=== PATIENT | female | born 1950 | race Caucasian/White ===

== ENCOUNTER 2020-02-17 10:02 | Inpatient (IN) ==
[2020-02-17 10:44] LABS: Apearance,Urine CLOUDY (Clear); Bacteria,Urine Many /HPF (Few); Bilirubin,Urine Negative (Negative); Blood, Urine Moderate mg/dL (Negative); Glucose,Urine (UA) Negative (Negative); Ketones,Urine Negative (Negative); Nitrite,Urine Negative (Negative); Protein,Urine >=500 MG/DL; RBC,Urine 60 /HPF (0-4); Urine Color Amber (Yellow); Urine Specific Gravity 1.014 (1.001-1.035); Urine Urobilinogen < 2.0 EU/DL (0.2-1.0); WBC,Urine 590 /HPF (0-6)
[2020-02-17 10:49] LABS: Basophils % 0.1 % (0.0-0.8); Hematocrit 28.2 VOL% (35.7-47.0); Hemoglobin 9.1 GM/DL (12.0-16.0); Immature Granulocytes % 0.5 %; Immature Granulocytes Absolute 0.07 #; Lymphocytes # 0.6 10*3/uL (1.4-4.0); Mean Corpuscular HGB Conc 32.3 GM/DL (32-36); Mean Corpuscular Volume 97.6 FL (87-102); Mean Platelet Volume 10.3 FL (9.6-12.0); Monocytes % 6.6 % (1.7-12.7); Neutrophils % 88.8 % (38.7-73.9); Platelet Count 260 T/CUMM (130-400); Red Blood Count 2.89 MC/CUMM (3.8-5.5); White Blood Count 13.7 T/CUMM (4-12)
[2020-02-17 11:00] LABS: PT Patient Result 10.3 SECS (9.8-11.9); Partial Thromboplastin Time 27.1 SECS (23.9-33.8)
[2020-02-17 11:14] LABS: Anisocytosis 1+; Band Neutrophils 7 % (0-10); Lymphocytes 7 % (20-55); Platelet Estimate Normal; Segmented Neutrophils 82 % (50-85); Total Cells Counted 100
[2020-02-17 11:15] LABS: Macrocytosis Slight
[2020-02-17 11:24] LABS: Alanine Aminotransferase 23 U/L (13-56); Albumin 2.5 G/DL (3.4-5.0); Alkaline Phosphatase 69 U/L (45-117); Aspartate Amino Transferase 23 U/L (0-37); Blood Urea Nitrogen 55 MG/DL (7-18); Calcium 9.5 MG/DL (8.5-10.1); Estimated Glom Filtration Rate 8 ML/MIN; Glucose 96 MG/DL (74-106); Osmolality,Calculated 295.3 MOS/KG (273-304); Total Protein 5.7 G/DL (6.4-8.3)
[2020-02-17] MEDS ORDERED: ASPIRIN CHEW 81 MG TABLET PO STA (11:30)
[2020-02-17] MEDS ORDERED: DEXTROSE 50% 25 GM/50 ML VIAL IV PRN ×2 (12:50→14:30)
[2020-02-17] MEDS ORDERED: GLUCAGON 1 MG VIAL IM PRN ×2 (12:50→14:30)
[2020-02-17] MEDS ORDERED: ONDANSETRON 4 MG/2 ML VIAL IV PRN (14:30)
[2020-02-17] MEDS ORDERED: ACETAMINOPHEN 325 MG TABLET PO PRN (14:30)
[2020-02-17] MEDS: methylPREDNISolone SOD SUC 40 MG/1 ML VIAL IV SCH (15:12)
[2020-02-17] MEDS: cefTRIAXone 1,000 MG in SYRINGE 1 EACH IV SCH (15:14)
[2020-02-17] MEDS: SODIUM CHLORIDE 0.9% 1,000 ML IV SCH (15:18)
[2020-02-17] MEDS: INSULIN REGULAR 100 UNIT/ML SUBCUT SCH ×2 (17:10→20:58)
[2020-02-17] MEDS: DIPYRIDAMOLE/ASPIRIN 200-25 MG CAPSULE PO SCH (20:57)
[2020-02-17] MEDS: hydrALAZINE 20 MG/1 ML VIAL IV PRN (20:58)
[2020-02-18] MEDS: methylPREDNISolone SOD SUC 40 MG/1 ML VIAL IV SCH ×2 (02:03→14:24)
[2020-02-18 05:22] LABS: Basophils % 0.1 % (0.0-0.8); Hematocrit 28.1 VOL% (35.7-47.0); Hemoglobin 9.1 GM/DL (12.0-16.0); Immature Granulocytes % 1.1 %; Immature Granulocytes Absolute 0.15 #; Lymphocytes # 0.4 10*3/uL (1.4-4.0); Lymphocytes % 2.8 % (21.3-54.2); Mean Corpuscular HGB Conc 32.4 GM/DL (32-36); Mean Corpuscular Volume 98.6 FL (87-102); Mean Platelet Volume 10.6 FL (9.6-12.0); Monocytes % 2.8 % (1.7-12.7); Neutrophils % 93.2 % (38.7-73.9); Platelet Count 253 T/CUMM (130-400); Red Blood Count 2.85 MC/CUMM (3.8-5.5); Red Cell Distribution Width 14.9 % (9.3-17.3); White Blood Count 13.9 T/CUMM (4-12)
[2020-02-18 05:47] LABS: Calcium 9.2 MG/DL (8.5-10.1); Osmolality,Calculated 296.4 MOS/KG (273-304)
[2020-02-18 06:29] LABS: Lymphocytes 8 % (20-55); Platelet Estimate Adequate; Polychromasia Slight; Segmented Neutrophils 87 % (50-85); Total Cells Counted 100
[2020-02-18] MEDS: INSULIN REGULAR 100 UNIT/ML SUBCUT SCH ×4 (08:07→20:55)
[2020-02-18] MEDS: METOPROLOL TARTRATE 25 MG TABLET PO SCH (08:07)
[2020-02-18] MEDS: ASPIRIN EC 81 MG TABLET PO SCH (08:07)
[2020-02-18] MEDS: DIPYRIDAMOLE/ASPIRIN 200-25 MG CAPSULE PO SCH ×2 (08:07→20:55)
[2020-02-18] MEDS ORDERED: amLODIPine 5 MG TABLET PO SCH (09:00)
[2020-02-18] MEDS ORDERED: amLODIPine 10 MG TABLET PO SCH (14:23)
[2020-02-18] MEDS: cefTRIAXone 1,000 MG in SYRINGE 1 EACH IV SCH (14:29)
[2020-02-18] MEDS: SODIUM CHLORIDE 0.9% 1,000 ML IV SCH (16:17)
[2020-02-19] MEDS: methylPREDNISolone SOD SUC 40 MG/1 ML VIAL IV SCH (02:04)
[2020-02-19] MEDS: hydrALAZINE 20 MG/1 ML VIAL IV PRN (07:59)
[2020-02-19] MEDS ORDERED: ROSUVASTATIN 10 MG TABLET PO SCH (09:00)
[2020-02-19] MEDS: INSULIN REGULAR 100 UNIT/ML SUBCUT SCH ×2 (09:48→11:59)
[2020-02-19] MEDS: ASPIRIN EC 81 MG TABLET PO SCH (09:50)
[2020-02-19] MEDS: DIPYRIDAMOLE/ASPIRIN 200-25 MG CAPSULE PO SCH (09:50)
[2020-02-19] MEDS: METOPROLOL TARTRATE 25 MG TABLET PO SCH (09:51)
[2020-02-19 12:39] VITALS: BP 168/70
[2020-02-19] MEDS ORDERED: PNEUMOCOCCAL VACCINE (23 VALENT) 0.5 ML VIAL IM ONE (14:18)
[2020-02-19] MEDS ORDERED: INFLUENZA VIRUS VACCINE 0.5 ML SYRINGE IM ONE (14:18)
[2020-02-19] MEDS: SODIUM CHLORIDE 0.9% 1,000 ML IV SCH (14:38)
== END 2020-02-19 15:46 | disposition home health service (06) | DRG 947 ==
LOC: EDUNIT# → EDBD → N.TELEN 10:02 → N.ED 10:02 → OBSVTOIN 11:50 → N.TELEN 14:10
PROVIDERS: ADMIT Family Medicine; ATTEND Family Medicine

== ENCOUNTER 2020-03-06 06:00 | Inpatient (IN) ==
[2020-03-06] MEDS ORDERED: FUROSEMIDE 40 MG/4 ML VIAL IV STA (06:12)
[2020-03-06 06:28] LABS: Basophils % 0.5 % (0.0-0.8); Eosinophils # 0.1 10*3/uL (0.0-0.87); Eosinophils % 1.9 % (0.00-10.9); Hemoglobin 7.5 GM/DL (12.0-16.0); Immature Granulocytes % 0.2 %; Immature Granulocytes Absolute 0.01 #; Lymphocytes % 16.8 % (21.3-54.2); Mean Corpuscular HGB Conc 31.3 GM/DL (32-36); Mean Corpuscular Volume 102.6 FL (87-102); Mean Platelet Volume 10.7 FL (9.6-12.0); Monocytes % 7.8 % (1.7-12.7); Neutrophils % 72.8 % (38.7-73.9); Platelet Count 270 T/CUMM (130-400); Red Blood Count 2.34 MC/CUMM (3.8-5.5); Red Cell Distribution Width 14.7 % (9.3-17.3); White Blood Count 5.7 T/CUMM (4-12)
[2020-03-06 06:31] LABS: ABG Base Excess -5.2 MMOL/L (-2.5-2.5); ABG HCO3 20.1 MMOL/L (20-26); ABG Oxygen Saturation 97.1 % (95-100); ABG PCO2 35.9 MM HG (35-48); ABG PH 7.351 (7.35-7.45); ABG PO2 99.2 MM HG (80-95); ABG TCO2 18.9 MMOL/L (23-27); Allen Test Positive; Amorphous Crystals,Urine Few /HPF (Few); Bacteria,Urine Occasional /HPF (Few); Bilirubin,Urine Negative (Negative); Blood, Urine Negative (Negative); Glucose,Urine (UA) 50 mg/dL (Negative); Hyaline Casts,Urine 3 /LPF (0-3); Ketones,Urine Negative (Negative); Mucus,Urine Occasional /LPF (Occasional); Nitrite,Urine Negative (Negative); Protein,Urine 100 MG/DL; Pt O2 Delivery Device Ventilator; Squamous Epithelial Cell,Urine Occasional /HPF (0-10); Urine Appearance Slightly Hazy (Clear); Urine Color Yellow (Yellow); Urine Specific Gravity 1.011 (1.001-1.035); Urine Urobilinogen < 2.0 EU/DL (0.2-1.0)
[2020-03-06 06:48] LABS: Albumin 2.2 G/DL (3.4-5.0); Bilirubin,Total 0.5 MG/DL (0.2-1.0); Calcium 9.6 MG/DL (8.5-10.1); Osmolality,Calculated 305.8 MOS/KG (273-304); Total Protein 5.2 G/DL (6.4-8.3)
[2020-03-06] MEDS ORDERED: ONDANSETRON 4 MG/2 ML VIAL IV PRN (07:41)
[2020-03-06] MEDS ORDERED: MORPHINE 4 MG/1 ML VIAL IV PRN (07:41)
[2020-03-06] MEDS ORDERED: ALBUTEROL 2.5 MG/3 ML NEB RESP TX PRN (07:41)
[2020-03-06] MEDS: PANTOPRAZOLE 40 MG VIAL IV SCH (08:46)
[2020-03-06] MEDS: ENOXAPARIN 30 MG/0.3 ML SYRINGE SUBCUT SCH (08:50)
[2020-03-06 13:57] LABS: Hepatitis B Core IgM Quant 0.05 Index; Hepatitis B Surface Ag Quant < 0.10 Index; Hepatitis B Surface Ag Result Negative (Negative); Hepatitis C Virus Ab Quant 0.09 Index; Hepatitis C Virus Ab Result Negative (Negative)
[2020-03-06] MEDS ORDERED: DOPamine 800 MG/250 ML PREMIX IV ONE (16:12)
[2020-03-06] MEDS: DOPamine 800 MG/250 ML PREMIX IV PRN (16:19)
[2020-03-06] MEDS ORDERED: ALBUMIN 25% 25 GM in PREMIX 1 EACH IV ONE ×2 (16:25→17:00)
[2020-03-06] MEDS ORDERED: HEPARIN 10,000 UNIT/10 ML VIAL IV SCH (17:00)
[2020-03-07 03:54] LABS: ABG Base Excess -6.8 MMOL/L (-2.5-2.5); ABG HCO3 18.8 MMOL/L (20-26); ABG PCO2 24.8 MM HG (35-48); ABG TCO2 15.3 MMOL/L (23-27); Allen Test Positive; Pt O2 Delivery Device Ventilator
[2020-03-07 04:51] LABS: Basophils % 0.1 % (0.0-0.8); Hematocrit 25.2 VOL% (35.7-47.0); Hemoglobin 7.9 GM/DL (12.0-16.0); Immature Granulocytes % 0.2 %; Immature Granulocytes Absolute 0.02 #; Lymphocytes # 0.6 10*3/uL (1.4-4.0); Lymphocytes % 6.2 % (21.3-54.2); Mean Corpuscular HGB Conc 31.3 GM/DL (32-36); Mean Corpuscular Volume 98.1 FL (87-102); Mean Platelet Volume 10.5 FL (9.6-12.0); Monocytes % 8.9 % (1.7-12.7); Neutrophils % 84.6 % (38.7-73.9); Platelet Count 287 T/CUMM (130-400); Red Blood Count 2.57 MC/CUMM (3.8-5.5); White Blood Count 9.1 T/CUMM (4-12)
[2020-03-07 05:15] LABS: Albumin 2.7 G/DL (3.4-5.0); Bilirubin,Total 1.3 MG/DL (0.2-1.0); Calcium 8.9 MG/DL (8.5-10.1); Osmolality,Calculated 301.3 MOS/KG (273-304); Risk Ratio 2.31; Thyroid Stimulating Hormone 0.909 uIU/ml (0.358-3.74); Total Protein 5.6 G/DL (6.4-8.3)
[2020-03-07] MEDS: PANTOPRAZOLE 40 MG VIAL IV SCH (07:43)
[2020-03-07] MEDS: ENOXAPARIN 30 MG/0.3 ML SYRINGE SUBCUT SCH (07:44)
[2020-03-07] MEDS: DOPamine 800 MG/250 ML PREMIX IV PRN (09:06)
[2020-03-07] MEDS: DESITIN 4OZ/NYSTATIN 15 GRAM MIXTURE PASTE TOP SCH ×2 (09:45→20:30)
[2020-03-07] MEDS ORDERED: ALBUMIN 25% 25 GM in PREMIX 1 EACH IV ONE (12:00)
[2020-03-08 04:17] LABS: ABG Base Excess 1.8 MMOL/L (-2.5-2.5); ABG Oxygen Saturation 95.7 % (95-100); ABG PCO2 32.2 MM HG (35-48); ABG PH 7.493 (7.35-7.45); ABG PO2 71.2 MM HG (80-95); ABG TCO2 22.7 MMOL/L (23-27); Allen Test Positive
[2020-03-08 04:42] LABS: Basophils % 0.1 % (0.0-0.8); Eosinophils % 0.3 % (0.00-10.9); Hematocrit 19.6 VOL% (35.7-47.0); Immature Granulocytes % 0.4 %; Immature Granulocytes Absolute 0.03 #; Lymphocytes # 0.6 10*3/uL (1.4-4.0); Lymphocytes % 8.6 % (21.3-54.2); Mean Corpuscular HGB Conc 32.7 GM/DL (32-36); Mean Corpuscular Volume 96.1 FL (87-102); Monocytes % 7.1 % (1.7-12.7); Neutrophils % 83.5 % (38.7-73.9); Platelet Count 218 T/CUMM (130-400); Red Blood Count 2.04 MC/CUMM (3.8-5.5); Red Cell Distribution Width 14.2 % (9.3-17.3)
[2020-03-08 04:47] LABS: Hemoglobin 6.4 GM/DL (12.0-16.0)
[2020-03-08 04:54] LABS: Albumin 2.5 G/DL (3.4-5.0); Calcium 8.4 MG/DL (8.5-10.1); Osmolality,Calculated 277.5 MOS/KG (273-304); Total Protein 5.3 G/DL (6.4-8.3)
[2020-03-08 05:05] LABS: Band Neutrophils 4 % (0-10); Hypochromasia 2+; Lymphocytes 10 % (20-55); Microcytosis 1+; Ovalocytes Slight; Platelet Estimate Adequate; Segmented Neutrophils 83 % (50-85); Total Cells Counted 100
[2020-03-08 05:38] LABS: Hematocrit 19.4 VOL% (35.7-47.0)
[2020-03-08 05:42] LABS: Hemoglobin 6.3 GM/DL (12.0-16.0)
[2020-03-08] MEDS ORDERED: SODIUM CHLORIDE 0.9% 1,000 ML IV PRN (05:48)
[2020-03-08] MEDS: DESITIN 4OZ/NYSTATIN 15 GRAM MIXTURE PASTE TOP SCH ×3 (08:34→22:31)
[2020-03-08] MEDS: PANTOPRAZOLE 40 MG VIAL IV SCH (08:35)
[2020-03-08] MEDS: ENOXAPARIN 30 MG/0.3 ML SYRINGE SUBCUT SCH (08:35)
[2020-03-08] MEDS ORDERED: DIPYRIDAMOLE/ASPIRIN 200-25 MG CAPSULE PO SCH (21:00)
[2020-03-09 05:28] LABS: Basophils % 0.3 % (0.0-0.8); Eosinophils # 0.1 10*3/uL (0.0-0.87); Eosinophils % 0.7 % (0.00-10.9); Hematocrit 27.3 VOL% (35.7-47.0); Immature Granulocytes % 0.4 %; Immature Granulocytes Absolute 0.03 #; Lymphocytes # 0.9 10*3/uL (1.4-4.0); Lymphocytes % 12.9 % (21.3-54.2); Mean Corpuscular HGB Conc 32.6 GM/DL (32-36); Mean Corpuscular Volume 95.1 FL (87-102); Monocytes % 8.6 % (1.7-12.7); Neutrophils % 77.1 % (38.7-73.9); Platelet Count 211 T/CUMM (130-400); Red Blood Count 2.87 MC/CUMM (3.8-5.5); Red Cell Distribution Width 13.9 % (9.3-17.3); White Blood Count 7.1 T/CUMM (4-12)
[2020-03-09 05:29] LABS: Hemoglobin 8.9 GM/DL (12.0-16.0)
[2020-03-09 05:48] LABS: Albumin 2.4 G/DL (3.4-5.0); Bilirubin,Total 1.5 MG/DL (0.2-1.0); Calcium 8.4 MG/DL (8.5-10.1); Osmolality,Calculated 275.5 MOS/KG (273-304); Total Protein 5.8 G/DL (6.4-8.3)
[2020-03-09] MEDS ORDERED: ceFAZolin 1,000 MG in SYRINGE 1 EACH IV ONE (09:35)
[2020-03-09] MEDS: ENOXAPARIN 30 MG/0.3 ML SYRINGE SUBCUT SCH (10:01)
[2020-03-09] MEDS: CHOLECALCIFEROL 5,000 UNIT TABLET PO SCH (10:02)
[2020-03-09] MEDS: CALCIUM (CARBONATE)/VITAMIN D 600 MG-400 UNIT TABLET PO SCH (10:02)
[2020-03-09] MEDS: MULTIVITAMIN (BEROCCA) TABLET PO SCH (10:02)
[2020-03-09] MEDS: FERROUS SULFATE 325 MG TABLET PO SCH (10:02)
[2020-03-09] MEDS ORDERED: INFLUENZA VIRUS VACCINE 0.5 ML SYRINGE IM ONE (12:59)
[2020-03-09] MEDS: DESITIN 4OZ/NYSTATIN 15 GRAM MIXTURE PASTE TOP SCH ×2 (19:10→22:30)
[2020-03-10 05:26] LABS: Basophils % 0.5 % (0.0-0.8); Eosinophils # 0.1 10*3/uL (0.0-0.87); Eosinophils % 1.2 % (0.00-10.9); Hemoglobin 9.5 GM/DL (12.0-16.0); Immature Granulocytes % 0.5 %; Immature Granulocytes Absolute 0.03 #; Lymphocytes # 0.9 10*3/uL (1.4-4.0); Lymphocytes % 13.7 % (21.3-54.2); Mean Corpuscular HGB Conc 32.8 GM/DL (32-36); Mean Corpuscular Volume 96.7 FL (87-102); Mean Platelet Volume 10.6 FL (9.6-12.0); Monocytes % 8.6 % (1.7-12.7); Neutrophils % 75.5 % (38.7-73.9); Platelet Count 206 T/CUMM (130-400); Red Cell Distribution Width 14.3 % (9.3-17.3); White Blood Count 6.6 T/CUMM (4-12)
[2020-03-10 05:41] LABS: Calcium 8.5 MG/DL (8.5-10.1); Osmolality,Calculated 275.7 MOS/KG (273-304)
[2020-03-10 05:44] LABS: Albumin 2.4 G/DL (3.4-5.0); Calcium 8.5 MG/DL (8.5-10.1); Osmolality,Calculated 275.7 MOS/KG (273-304); Total Protein 5.7 G/DL (6.4-8.3)
[2020-03-10] MEDS: ENOXAPARIN 30 MG/0.3 ML SYRINGE SUBCUT SCH (07:45)
[2020-03-10] MEDS: CALCIUM (CARBONATE)/VITAMIN D 600 MG-400 UNIT TABLET PO SCH (09:55)
[2020-03-10] MEDS: CHOLECALCIFEROL 5,000 UNIT TABLET PO SCH (09:56)
[2020-03-10] MEDS: MULTIVITAMIN (BEROCCA) TABLET PO SCH (09:56)
[2020-03-10] MEDS: FERROUS SULFATE 325 MG TABLET PO SCH (09:56)
[2020-03-10] MEDS: DESITIN 4OZ/NYSTATIN 15 GRAM MIXTURE PASTE TOP SCH ×2 (09:57→20:30)
[2020-03-11 05:44] LABS: Calcium 8.5 MG/DL (8.5-10.1); Osmolality,Calculated 285.7 MOS/KG (273-304)
[2020-03-11] MEDS: ENOXAPARIN 30 MG/0.3 ML SYRINGE SUBCUT SCH (09:03)
[2020-03-11] MEDS: FERROUS SULFATE 325 MG TABLET PO SCH (10:18)
[2020-03-11] MEDS: CALCIUM (CARBONATE)/VITAMIN D 600 MG-400 UNIT TABLET PO SCH (10:18)
[2020-03-11] MEDS: CHOLECALCIFEROL 1,000 UNIT TABLET PO SCH (10:18)
[2020-03-11] MEDS: MULTIVITAMIN (BEROCCA) TABLET PO SCH (10:18)
[2020-03-11] MEDS: DESITIN 4OZ/NYSTATIN 15 GRAM MIXTURE PASTE TOP SCH ×2 (10:18→20:40)
[2020-03-12] MEDS ORDERED: ceFAZolin 1,000 MG in SYRINGE 1 EACH IV ONE (06:00)
[2020-03-12 06:26] LABS: Calcium 8.3 MG/DL (8.5-10.1)
[2020-03-12] MEDS ORDERED: LIDOCAINE 1%/EPI INJ 20 ML VIAL ONE (09:40)
[2020-03-12] MEDS ORDERED: TISSUE ADHESIVE 1 EACH APPLICATOR TOP ONE (09:40)
[2020-03-12] MEDS ORDERED: HEPARIN 5,000 UNIT/1 ML VIAL ONE (09:41)
[2020-03-12] MEDS ORDERED: KETAMINE 500 MG/10 ML VIAL ONE (10:58)
[2020-03-12] MEDS ORDERED: MIDAZOLAM 2 MG/2 ML VIAL ONE (10:58)
[2020-03-12] MEDS: CALCIUM (CARBONATE)/VITAMIN D 600 MG-400 UNIT TABLET PO SCH (12:31)
[2020-03-12] MEDS: MULTIVITAMIN (BEROCCA) TABLET PO SCH (12:31)
[2020-03-12] MEDS: FERROUS SULFATE 325 MG TABLET PO SCH (12:31)
[2020-03-12] MEDS: CHOLECALCIFEROL 1,000 UNIT TABLET PO SCH (12:31)
[2020-03-12] MEDS: DESITIN 4OZ/NYSTATIN 15 GRAM MIXTURE PASTE TOP SCH ×2 (12:32→21:37)
[2020-03-12] MEDS ORDERED: HEPARIN 10,000 UNIT/10 ML VIAL IV SCH (16:15)
[2020-03-13 04:45] LABS: Basophils % 0.4 % (0.0-0.8); Eosinophils # 0.4 10*3/uL (0.0-0.87); Hematocrit 28.6 VOL% (35.7-47.0); Hemoglobin 9.3 GM/DL (12.0-16.0); Immature Granulocytes % 0.7 %; Immature Granulocytes Absolute 0.05 #; Lymphocytes # 0.6 10*3/uL (1.4-4.0); Lymphocytes % 8.5 % (21.3-54.2); Mean Corpuscular HGB Conc 32.5 GM/DL (32-36); Mean Corpuscular Volume 96.6 FL (87-102); Monocytes % 13.7 % (1.7-12.7); Neutrophils % 71.7 % (38.7-73.9); Platelet Count 210 T/CUMM (130-400); Red Blood Count 2.96 MC/CUMM (3.8-5.5); Red Cell Distribution Width 13.8 % (9.3-17.3); White Blood Count 7.4 T/CUMM (4-12)
[2020-03-13 05:08] LABS: Osmolality,Calculated 283.2 MOS/KG (273-304)
[2020-03-13] MEDS: CALCIUM (CARBONATE)/VITAMIN D 600 MG-400 UNIT TABLET PO SCH (10:03)
[2020-03-13] MEDS: CHOLECALCIFEROL 1,000 UNIT TABLET PO SCH (10:04)
[2020-03-13] MEDS: FERROUS SULFATE 325 MG TABLET PO SCH (10:04)
[2020-03-13] MEDS: MULTIVITAMIN (BEROCCA) TABLET PO SCH (10:04)
[2020-03-13] MEDS: DESITIN 4OZ/NYSTATIN 15 GRAM MIXTURE PASTE TOP SCH ×2 (11:46→21:09)
[2020-03-13] MEDS ORDERED: GLUCAGON 1 MG VIAL IM PRN (16:03)
[2020-03-13] MEDS ORDERED: DEXTROSE 50% 25 GM/50 ML VIAL IV PRN (16:03)
[2020-03-13] MEDS: INSULIN LISPRO 100 UNIT/ML SUBCUT SCH ×2 (16:35→21:08)
[2020-03-13] MEDS: INSULIN GLARGINE 100 UNIT/ML SUBCUT SCH (21:07)
[2020-03-14 06:28] LABS: Basophils % 0.5 % (0.0-0.8); Eosinophils # 0.3 10*3/uL (0.0-0.87); Eosinophils % 4.2 % (0.00-10.9); Hematocrit 27.3 VOL% (35.7-47.0); Hemoglobin 8.8 GM/DL (12.0-16.0); Immature Granulocytes % 0.7 %; Immature Granulocytes Absolute 0.06 #; Lymphocytes # 1.1 10*3/uL (1.4-4.0); Lymphocytes % 13.5 % (21.3-54.2); Mean Corpuscular HGB Conc 32.2 GM/DL (32-36); Mean Corpuscular Volume 96.5 FL (87-102); Mean Platelet Volume 10.4 FL (9.6-12.0); Monocytes % 12.2 % (1.7-12.7); Neutrophils % 68.9 % (38.7-73.9); Platelet Count 248 T/CUMM (130-400); Red Blood Count 2.83 MC/CUMM (3.8-5.5); White Blood Count 8.1 T/CUMM (4-12)
[2020-03-14 06:53] LABS: Calcium 8.5 MG/DL (8.5-10.1)
[2020-03-14] MEDS: INSULIN LISPRO 100 UNIT/ML SUBCUT SCH ×4 (08:02→21:21)
[2020-03-14] MEDS: FERROUS SULFATE 325 MG TABLET PO SCH (09:32)
[2020-03-14] MEDS: CALCIUM (CARBONATE)/VITAMIN D 600 MG-400 UNIT TABLET PO SCH (09:32)
[2020-03-14] MEDS: MULTIVITAMIN (BEROCCA) TABLET PO SCH (09:32)
[2020-03-14] MEDS: DESITIN 4OZ/NYSTATIN 15 GRAM MIXTURE PASTE TOP SCH ×2 (09:32→21:23)
[2020-03-14] MEDS: CHOLECALCIFEROL 1,000 UNIT TABLET PO SCH (09:32)
[2020-03-14] MEDS ORDERED: DEXTROSE 50% 25 GM/50 ML VIAL IV PRN (11:01)
[2020-03-14] MEDS: INSULIN GLARGINE 100 UNIT/ML SUBCUT SCH (21:21)
[2020-03-15 05:51] LABS: Calcium 8.7 MG/DL (8.5-10.1); Osmolality,Calculated 280.8 MOS/KG (273-304)
[2020-03-15] MEDS ORDERED: POTASSIUM CHLORIDE 20 MEQ TABLET PO ONE (08:24)
[2020-03-15] MEDS: CHOLECALCIFEROL 1,000 UNIT TABLET PO SCH (09:27)
[2020-03-15] MEDS: INSULIN LISPRO 100 UNIT/ML SUBCUT SCH ×4 (09:27→21:45)
[2020-03-15] MEDS: CALCIUM (CARBONATE)/VITAMIN D 600 MG-400 UNIT TABLET PO SCH (09:27)
[2020-03-15] MEDS: FERROUS SULFATE 325 MG TABLET PO SCH (09:27)
[2020-03-15] MEDS: MULTIVITAMIN (BEROCCA) TABLET PO SCH (09:27)
[2020-03-15] MEDS: DESITIN 4OZ/NYSTATIN 15 GRAM MIXTURE PASTE TOP SCH ×2 (10:30→21:48)
[2020-03-15] MEDS ORDERED: TUBERCULIN SKIN TEST 0.1 ML SYRINGE INTRADERM ONE (14:54)
[2020-03-15] MEDS: INSULIN GLARGINE 100 UNIT/ML SUBCUT SCH (21:48)
[2020-03-16 06:36] LABS: Osmolality,Calculated 286.8 MOS/KG (273-304)
[2020-03-16] MEDS: MULTIVITAMIN (BEROCCA) TABLET PO SCH (09:26)
[2020-03-16] MEDS: CALCIUM (CARBONATE)/VITAMIN D 600 MG-400 UNIT TABLET PO SCH (09:26)
[2020-03-16] MEDS: CHOLECALCIFEROL 1,000 UNIT TABLET PO SCH (09:26)
[2020-03-16] MEDS: FERROUS SULFATE 325 MG TABLET PO SCH (09:26)
[2020-03-16] MEDS: INSULIN LISPRO 100 UNIT/ML SUBCUT SCH ×2 (09:31→13:02)
[2020-03-16] MEDS: DESITIN 4OZ/NYSTATIN 15 GRAM MIXTURE PASTE TOP SCH (13:03)
[2020-03-16] MEDS ORDERED: HEPARIN 10,000 UNIT/10 ML VIAL ONE (13:45)
[2020-03-16 16:10] VITALS: BP 135/55
== END 2020-03-16 17:05 | DRG 208 ==
LOC: EDUNIT# → EDBD → SUATTDRO → N.ED 06:00 → N.EDINP 07:41 → SUATTDRO 07:41 → N.ICU 14:25 → N.TELEN 03-08 16:18
PROVIDERS: ADMIT Internal Medicine; ATTEND Family Medicine